=== PATIENT | female | born 1980 | race Caucasian/White ===

== ENCOUNTER 2017-09-09 16:03 | Emergency (ER) | payer MEDICAID ==
[~2017-09-09] VITALS: Ht 175.3 cm; Wt 122.5 kg
[~2017-09-09 16:03] MED LIST: BENADRYL 25MG C25 MG PO; GABAPENTIN 600600 MG PO; GLIPIZIDE ER 5MG5 MG PO; HYDROCODONE BIT1 T44 PO; HYDROXYZINE HYD50 M1 PO; KEFLEX 500MG.500 MG PO; LEVOTHYROXINE0.1 M1 PO; MEDROL 4MG. DOSE4 MG PO; NAPROXEN SODIU500 MG PO; Pepcid20 MG PO; TYLENOL ES500 M1 PO
[2017-09-09] MEDS ORDERED: MOTRIN 600MG.600 MG PO (16:17)
[2017-09-09] MEDS ORDERED: SINGULAIR 10 MG10 MG PO (16:24)
[2017-09-09] MEDS ORDERED: PRENATAL PLUS1 TA1 PO (16:24)
[2017-09-09] MEDS ORDERED: CEPHALEXIN500 MG PO (16:25)
[2017-09-09] MEDS ORDERED: ZYRTEC ALLERGY10 MG PO (16:25)
[2017-09-09] MEDS ORDERED: DOCUSATE SODIU100 M2 PO (16:26)
[2017-09-09] MEDS ORDERED: FLOVENT 11110 MCG/PU IH (16:27)
[2017-09-09 16:29] LABS: LYMPH # 1.9 K/mm3 (0.7-4.5); LYMPH % 18.2 % (10-50.0)
[2017-09-09] MEDS ORDERED: NOVOLIN N100 U/ML SC ×2 (16:29)
[2017-09-09] MEDS ORDERED: INSULIN RE100 UNITS/ SC (16:30)
[2017-09-09] MEDS ORDERED: ACETAMINOPHEN-O1 TAB PO (16:31)
[2017-09-09 16:34] LABS: HEMOGLOBIN 8.5 g/dL (12.2-16.2)
--- NOTE | 2017-09-09 16:40 | Emergency Room Report ---
History of Present Illness Time Seen by MD Castillo Presenting Problem in Triage Pt arrived:Walked Presenting Problem:PT C/O HEADACHE AND SHORTNESS OF BREATH BEGINNING THIS AM. PT ALSO C/O FEET SWELLING SINCE A ON 08/31/17 Onset of symptoms date/time:09/09/17 or onset unknown for: Treatment Prior to Arrival: CONTRACTS OFFICER Provided by: Sepsis Risk Assessment: Temp: 98.6 B/P: 199/98 MAP: 131 Pulse: 94 Resp: 18 Recent fever? N Clinical Suspician of Infection? N Mental Status: 1 - Regular (Normal Baseline) Sepsis Risk:Low Sepsis Risk Have you (or family members/close friends) recently traveled outside the [place]? N If Yes, where/when: Have you had exposure to infectious disease within the past month? N TB? Other? Specify: Patient is a A0 female s/p CS at [facility] on 08/31/17 with history of preeclampsia. She was on Labetalol PO with good blood pressure control at the time of delivery. She states she had a "difficult C -Section" but the baby is doing well at home, and she is . She also has continued to take Labetalol 100 mg PO TID, with the last dose at 1300 today per routine. She has no diplopia or gait change. She has occasional sharp, intermittent epigastric pain. Lochia is scant, and pink tinged. Post operatively she experienced a very itchy, red rash which she and her caretakes thought to be reaction to soap. Overall, it is improving. No other new rashes reported. She has undergone nearly complete thyroidectomy in the past and has occasional palpitations. ALLERGIES Coded Allergies: glyburide (Severe, 09/09/17) Penicillins (Intermediate, I-RASH 09/09/17) SHELLFISH (FOOD) (Intermediate, I-RASH 09/09/17) iodine (Intermediate, I-RASH 09/09/17) sunflower oil (Intermediate, I-RASH 09/09/17) Home Medications Reported Medications IBUPROFEN (Motrin 600MG) 600 MG PO Q6HP PRN PAIN #30 MULTIVIT-MIN W/FE-FA ( Multivitamin Tablet) 1 TAB PO DAILY Montelukast Sodium (Singulair 10MG) 10 MG PO DAILY Cetirizine Hcl (Zyrtec) 10 MG PO DAILY CEPHALEXIN MONOHYDRATE (Cephalexin 500MG Capsule) 500 MG PO Q6H Docusate Sodium 100 MG PO PRN PRN STOOL SOFTENER FLUTICASONE PROP (Flovent 110) 1 PUFF IH PRN PRN RESP Insulin, Isophane Human (Nph) (Novolin N 10ML VIAL) 60 UNITS SC QAM Insulin, Isophane Human (Nph) (Novolin N 10ML VIAL) 40 UNITS SC QPM Insulin Regular (Regular Insulin 10ML Vial) 0 UNITS SC TID OXYCODONE HCL/ACETAMINOPHEN (Oxycodone-Acetaminophen 5-325) 1 TAB PO Q4HP PRN PAIN #30 History Medical History General CAD? No Angina: No LA: No Hypertension? No Hyperlipidemia? No CHF? No DVT? No PE? No COPD? No Asthma? No Anemia? No GERD? No Gastric ulcers? No GI Bleed? No Hernia? No Thyroid Problems? Yes Hypothyroidism? Yes CVA? No Seizures? No Diabetes? Yes Insulin Dependent: Yes Insulin Pump: No Home FSBS? Yes Renal Insuffiency? No End Stage Renal Disease? No UTI? Yes Stones? No GB Disease: Yes Nephritic Syndrome? No Asplenia? No Hepatitis? No Sickle Cell Disease? No Arthritis? No Migraines? No Cataracts? No Glaucoma? No MRSA? No HIV? No TB? No Anxiety? No Depression? No Cancer? No Immunization Hx DT/Tetanus 09/21/2006 Flu 2012-FSN Pneumonia Never Had Surgical Hx Previous Surgery?Y GALLBLADDER 2010 TEETH EXTRACTION TONSILS [employer] Hx LMP 13 Months Or More Family History Family Hx Diabetes Yes CAD Yes Hypertension Yes Hyperlipidemia No Cancer Yes TB No Social History Smoking Hx Smoker: Never Smoker Tobacco: No Alcohol Alcohol: No Review of Systems All Other Systems Reviewed and Negative Cardiovascular denies see HPI Genitourinary see HPI. Psychiatric/Neurological see HPI Physical Exam Vital Signs Vital Signs Date Time Temp Pulse Resp B/P Pulse O2 O2 Flow FiO2 Ox Delivery Rate 09/09 1716 87 16 147/89 96 09/09 1649 95 16 148/79 96 09/09 1608 98.6 94 18 199/98 96 General Appearance normal appearance, WD/WN, no apparent distress Eye Exam - bilateral eye normal exam, bilateral eye PERRL, bilateral eye EOMI Neck normal inspection, non-tender, supple, full range of motion Respiratory Status Yes: trachea midline, chest symmetrical, non tender chest. No: respiratory distress, tender on palpation, use of accessory muscles, pain on inspiration, pain on expiration, productive cough, non productive cough. Lung Sounds bilateral: normal breath sounds, lungs clear. Cardiovascular normal exam, regular rate/rhythm, no peripheral edema, no gallop, no JVD, no murmur, no rub, normal peripheral pulses Gastrointestinal normal bowel sounds, normal exam, non tender, soft, no organomegaly, no pulsatile mass, no guarding, no rebound, mild contact dermatititis, diffusely, no secondary infection noted; CS scar is well healing with no edema or erythema noted, and no drainage or tenderness. Extremities non-tender, normal range of motion, normal inspection, normal capillary refill, no calf tenderness, no pedal edema Strength 5 Upper Ext (L), 5 Upper Ext (R), 5 Lower Ext (L), 5 Lower Ext (R) Neurologic alert, call center operator II-XII nml as tested, normal exam, no motor/sensory deficits, oriented x 3 Glascow Coma Scale Glascow Coma Scale Response Value EYE response: 4 Spontaneously 4 MOTOR response: 6 OBEYS 6 VERBAL response: 5 Oriented & Converses 5 Total 15 Skin intact, normal color (see above for wound check) Medical Decision Making LABS/Meds/Orders Pt receiving controlled substance in ED? No Results/Orders Laboratory Tests 09/09/171624: TSH 3.40, Free T4 Index 8.2, Thyroxine (T4) 11.0, T3 Uptake 30 L 09/09/17 1625: Sodium 141, Potassium 3.8, Chloride 104, Carbon Dioxide 31, BUN 15, Creatinine 0.7, Estimated Creat Clear 209 H, Estimated GFR (MDRD) 93, Glucose 93, Calcium 9.4, Total Bilirubin 0.3, AST 15, ALT 21, Alkaline Phosphatase 103, Lactate Dehydrogenase 191, Total Protein 7.1, Albumin 2.7 L, Globulin 4.4 H, Albumin/ Globulin Ratio 0.6 L, PT 10.1, INR 0.94, APTT 26.1, WBC 10.2, RBC 2.96 L, Hgb 8.5 L, Hct 26.1 L, MCV 88.5, RDW 14.9, Plt Count 421, MPV 7.6, Gran % 72.4, Gran # 7.4, Lymphocytes % 18.2, Monocytes % 5.7, Eosinophils % 3.4, Basophils % 0.4, Lymphocytes # 1.9, Monocytes # 0.6, Eosinophils # 0.3, Basophils # 0.0, PUBS MCHC 32.4, MCH 28.7 Current Medication Orders Sig/Mike Start time Last Medication Dose Route Stop Time Status Admin Magnesium Sulfate 0 .STK-MED ONE 09/09 1749 DC .ROUTE Magnesium Sulfate 4 GM ONCE ONE 09/09 174 AC Sodium Chloride 100 ML IV 09/09 1848 Magnesium Sulfate 2 GM ONCE ONE 09/09 174 AC Sodium Chloride 100 ML IV 09/09 184 Magnesium Sulfate 0 .STK-MED ONE 09/09 174 DC .ROUTE Sodium Chloride 100 ML .STK-MED ONE 09/09 1739 DC IV Sodium Chloride 50 ML .STK-MED ONE 09/09 1739 DC IV Sodium Chloride 100 ML .STK-MED ONE 09/09 1739 DC IV Magnesium Sulfate 0 .STK-MED ONE 09/09 1738 DC .ROUTE Labetalol HCl 20 MG ONCE ONE 09/09 1715 DC 09/09 IV 09/09 1716 1717 Morphine Sulfate 4 MG ONCE ONE 09/09 1715 CAN IV 09/09 1716 Labetalol HCl 0 .STK-MED ONE 09/09 1713 DC IV Magnesium Sulfate 1 GM ONCE ONE 09/09 1630 DC 09/09 Sodium Chloride 50 ML IV 09/09 1700 1633 Sodium Chloride 10 ML PRN PRN 09/09 1630 AC 09/09 IV 09/10 1617 1718 Sodium Chloride 50 ML .STK-MED ONE 09/09 1629 DC IV Magnesium Sulfate 0 .STK-MED ONE 09/09 1628 DC .ROUTE Orders Procedure Date/time Status ELECTROCARDIOGRAM REQUEST 09/09 1640 Active THYROID PANEL 2 (WITH TSH) 09/09 1640 Complete GEN NSG/PT REQ (NOT FOR MEDS!) 09/09 1625 Active IV SALINE LOCK 09/09 1617 Active URINALYSIS/COMPLETE 09/09 1617 Active PARTIAL THROMBOPLASTIN TIME 09/09 1617 Complete PROTHROMBIN TIME 09/09 1617 Complete LDH 09/09 1617 Complete CBC WITH AUTO DIFF 09/09 1617 Complete CHEM 12 PROFILE 09/09 1617 Complete CM/EKG CM/EKG EKG rate, NSR, rhythm, no evid. of ischemic chgs, no ectopy, normal QRS, normal [place], normal EKG (nl QTc; NSR 82) Consult MD Physician Consult 1 Time Called 1651 Reason Gynecological eval/care, Obstetrical eval/care Comments preeclampsia; [facility] paged. Physician Consult 2 Time Called 1725 Reason Transfer to facility Comments Dr. Gustafson reviewed meds already given (Mag and Labetalol) and in addition would like 4 gram Mag IV over thirty minutes followed by a Mag gtts at 2 grams/hour. Progress ED Progress Notes 1 Date 09/09/17 Time 1650 Comment BP 148/79, still receiving Magnesium gtts; headache abating and is almost gone. ED Progress Notes 2 Date 09/09/17 Time 1751 Comment 160/90; mild cephalgia; Mag bolus being initiated currently and OB RN will accompany her on the ambulance and understands that the Mag gtts will be 2 grams /hr after the 4 mg bolus. Departure Departure Time of Disposition 180 Disposition DC/XFER from ER to [facility] Clinical Impression Primary Impression: Preeclampsia in period Condition STABLE ED Critical Care Critical Care Yes Time spent 30-74 min Vital system(s) involved: Circulatory Failure (hypertension: symptomatic) I was present at bedside for Coordinating pt's care, Interpreting EKGs/Strips , During my initial exam, Reviewing lab results, Discussing pt condition, For re -examinations at 1802
--- OUTSIDE RECORDS SUMMARY | 2017-09-09 16:40 | External Medical Summary Rpt | CCD ---
Author Author , EVA VELASQUEZ Address Unknown Phone [email or web address] Purpose Continuity of Care Document - 10-23-2013 through 2016 Problems Code Diagnosis DOS Provider Status O26.892 Other 05-17-2017 specified related conditions, second trimester R73.9 Hyperglycem 05-17-2017 ia, unspecified E11.9 TYPE 2 01-31-2017 DIABETES MELLITUS WITHOUT COMPLICATIO NS O24.311 UNSPECIFIED 01-31-2017 PRE-EXISTIN G DIABETES MELLITUS IN , FIRST TRIMESTER O26.891 OTHER 01-31-2017 SPECIFIED RELATED CONDITIONS, FIRST TRIMESTER O9A.211 INJURY, 01-31-2017 POISONING AND CERTAIN OTHER CONSEQUENCE S OF EXTERNAL CAUSES COMPLICATIN G , FIRST TRIMESTER R03.0 ELEVATED 01-31-2017 BLOOD-PRESS URE READING, WITHOUT DIAGNOSIS OF HYPERTENSIO N R10.2 PELVIC AND 01-31-2017 PERINEAL PAIN Z3A.01 LESS THAN 8 01-31-2017 WEEKS GESTATION OF L50.8 OTHER URTICARIA T78.40XA ALLERGY, UNSPECIFIED , INITIAL ENCOUNTER Results Labs Lab Lab Date Result Refere Interp Status Commen Order Detail nces retati t Range on Creat Ur-mCnc (08-30-2017 23:43) Creat 63 complet Ur-mCnc 017 mg/dL ed 23:43 Gp B Strep XXX Ql Cult (08-16-2017 15:26) Bacteri [id number] complet a XXX 017 7 ed Anaerob 15:26 Strepto e+Aerob coccus e Cult agalact iae (organi sm) SCT JEFFREY STREPTO COCCUS AGALACT IAE (BETA HEMOLYT IC STREPTO COCCUS, GROUP B) L Creat Ur-mCnc (08-14-2017 04:53) Creat 170 complet Ur-mCnc 017 mg/dL ed 04:53 TSH SerPl DL<=0.005 mIU/L-aCnc (06-28-2017 14:15) TSH 2.17 0.4-4.2 complet SerPl 017 uIU/mL ed DL<=0.0 14:15 05 mIU/L-a [facility] TSH SerPl DL<=0.005 mIU/L-aCnc (05-12-2017 12:58) TSH 1.83 0.4-4.2 complet SerPl 017 uIU/mL ed DL<=0.0 12:58 05 mIU/L-a Cnc Creat Ur-mCnc (05-12-2017 12:58) Creat 21 complet Ur-mCnc 017 mg/dL ed 12:58 Hgb A1c MFr Bld (05-06-2017 09:15) Hgb A1c 5.8 % 4.7-6.0 complet MFr 017 ed Bld 09:15 RPR Ser Ql (02-10-2017 10:30) RPR Ser NR complet Ql 017 NONREAC ed 10:30 TIVE L RUBV IgG Ser Ql (02-10-2017 10:30) RUBV POS complet IgG Ser 017 POSITIV ed Ql 10:30 E L HBV surface Ag SerPl Ql EIA (02-10-2017 10:30) HBV NEG complet surface 017 NEGATIV ed Ag 10:30 E L SerPl Ql EIA Bacteria Ur Cult (01-28-2017 13:09) Bacteri [id number] complet a XXX 017 07 ed Anaerob 13:09 Escheri e+Aerob moo e Cult coli (organi sm) SCT ECOL ESCHERI MOO COLI L CC XXX NOTAP complet VC-aCnc 017 NOT ed 13:09 APPLICA BLE L C trach+GC DNA XXX PCR (01-28-2017 13:09) Bacteri Referen complet a XXX 017 ce ed Anaerob 13:09 range: e+Aerob No DNA e Cult for Neisser ia gonorrh oeae detecte d. Bacteri (NOTE) complet a XXX 017 ed Anaerob 13:09 e+Aerob e Cult Bacteri [id number] complet a XXX 017 09 ed Anaerob 13:09 negativ e+Aerob e e Cult (qualif ier value) SCT NGNEG NEGATIV E for Neisser ia gonorrh oeae DNA by nucleic acid amplifi cation. L Chlamydia DNA XXX Ql PCR (01-28-2017 13:09) Bacteri Referen complet a XXX 017 ce ed Anaerob 13:09 Range: e+Aerob No DNA e Cult for Chlamyd ia trachom atis plasmid detecte d. Bacteri (NOTE) complet a XXX 017 ed Anaerob 13:09 e+Aerob e Cult Bacteri [id number] complet a XXX 017 09 ed Anaerob 13:09 negativ e+Aerob e e Cult (qualif ier value) SCT CTNEG NEGATIV E for Chlamyd ia trachom atis plasmid by nucleic acid amplifi cation. L CHLAMYDIA AND GONORRHEA TESTING (10-23-2013 13:00) Chlamyd NEGATIV complet ia 013 E ed trachom 13:00 atis rRNA [Presen ce] in Unspeci fied specime n by Probe & target amplifi cation method Neisser NEGATIV complet ia 013 E ed gonorrh 13:00 oeae rRNA [Presen ce] in Unspeci fied specime n by Probe & target amplifi cation method CHLAMYDIA AND GONORRHEA TESTING (10-23-2013 13:00) COLLECT RN complet OR 013 ed 13:00 ETHNICI WHITE, complet TY 013 NON-HIS ed 13:00 PANIC KIT 2013-12 complet EXPIRAT 013 -28 ed ION 13:00 DATE SYMPTOM NO complet S 013 ed 13:00 REASON REVISIT complet FOR 013 /ANNUAL ed REQUEST 13:00 FAMILY PLANNIN G VISIT SPECIME URINE complet N 013 ed SOURCE 13:00 PREGNAN NO complet T 013 ed 13:00 CHART [id number] complet NUMBER 013 59 ed 13:00 Chlamyd Pending complet ia 013 ed trachom 13:00 atis rRNA [Presen ce] in Unspeci fied specime n by Probe & target amplifi cation method Neisser 12-03-2 Pending complet ia 013 ed gonorrh 13:00 oeae rRNA [Presen ce] in Unspeci fied specime n by Probe & target amplifi cation method
--- OUTSIDE RECORDS SUMMARY | 2017-09-09 16:40 | External Medical Summary Rpt | CCD ---
Author Author , EVA VELASQUEZ Address Unknown Phone [email or web address] Purpose Continuity of Care Document - 10-23-2013 [...] Strep XXX Ql Cult (08-16-2017 15:26) Bacteri [id number] complet a XXX 017 7 ed Anaerob 15:26 Strepto e+Aerob coccus e Cult agalact iae (organi sm) SCT JEFFREY STREPTO COCCUS AGALACT IAE (BETA HEMOLYT IC STREPTO COCCUS, GROUP B) L Creat Ur-mCnc (08-14-2017 04:53) Creat 170 complet Ur-mCnc 017 mg/dL ed 04:53 TSH SerPl DL<=0.005 mIU/L-aCnc (06-28-2017 14:15) TSH 2.17 0.4-4.2 complet SerPl 017 uIU/mL ed DL<=0.0 14:15 05 mIU/L-a [facility] TSH SerPl DL<=0.005 mIU/L-aCnc (05-12-2017 12:58) TSH [...] EIA Bacteria Ur Cult (01-28-2017 13:09) Bacteri [id number] complet a XXX 017 07 ed Anaerob [...] ed Anaerob 13:09 e+Aerob e Cult Bacteri [id number] complet a XXX 017 09 ed Anaerob [...] ed Anaerob 13:09 e+Aerob e Cult Bacteri [id number] complet a XXX 017 09 ed Anaerob [...] NO complet T 013 ed 13:00 CHART [id number] complet NUMBER 013 59 ed 13:00 Chlamyd Pending complet ia 013 ed trachom 13:00 atis rRNA [Presen ce] in Unspeci fied specime n by Probe & target amplifi cation method Neisser 12-03-2 Pending complet ia 013 ed gonorrh 13:00 oeae rRNA [Presen ce] in Unspeci fied specime n by Probe & target amplifi cation method
--- OUTSIDE RECORDS SUMMARY | 2017-09-09 16:41 | External Medical Summary Rpt ---
Author Author EVA Castillo, [employer] Address Unknown Phone Unavailable Results CHLAMYDIA AND GONORRHEA TESTING Observa Value Referen Units Interpr Notes Date tion ce etation Range COLLECT RN No No No No Oct 3 OR informa informa informa informa 2013 tion in tion in tion in tion in 1:00 PM source source source source data data data data ETHNICI WHITE, No No No No Oct 23 TY NON-HIS informa informa informa informa 2013 PANIC tion in tion in tion in tion in 1:00 PM source source source source data data data data KIT 2013-12 No No No No Oct 23 EXPIRAT -28 informa informa informa informa 2013 ION tion in tion in tion in tion in 1:00 PM DATE source source source source data data data data SYMPTOM NO No No No No Oct 23 S informa informa informa informa 2013 tion in tion in tion in tion in 1:00 PM source source source source data data data data REASON REVISIT No No No No Oct 23 FOR /ANNUAL informa informa informa informa 2013 REQUEST FAMILY tion in tion in tion in tion in 1:00 PM source source source source PLANNIN data data data data G VISIT SPECIME URINE No No No No Oct 23 N informa informa informa informa 2013 SOURCE tion in tion in tion in tion in 1:00 PM source source source source data data data data PREGNAN NO No No No No Oct 23 T informa informa informa informa 2013 tion in tion in tion in tion in 1:00 PM source source source source data data data data CHART [id number] No No No No Oct 23 NUMBER 59 informa informa informa informa 2013 tion in tion in tion in tion in 1:00 PM source source source source data data data data Chlamyd NEGATIV No No No NEGATIV Oct 23 ia E informa informa informa E 2013 trachom tion in tion in tion in RESULT= 1:00 PM atis source source source WITHIN rRNA data data data NORMAL [Presen ce] in LIMITSP Unspeci OSITIVE fied specime RESULT= n by Probe & ABNORMA target LEQUIVO PEPE amplifi RESULT= cation method INDETER MINATEU NSATISF ACTORY RESULT= INVALID Neisser NEGATIV No No No NEGATIV Oct 23 ia E informa informa informa E 2013 gonorrh tion in tion in tion in RESULT= 1:00 PM oeae source source source WITHIN rRNA data data data NORMAL [Presen ce] in LIMITSP Unspeci OSITIVE fied specime RESULT= n by Probe & ABNORMA target LEQUIVO PEPE amplifi RESULT= cation method INDETER MINATEU NSATISF ACTORY RESULT= INVALID THE APTIMA COMBO 2 ASSAY IS NOT INTENDE D FOR THE EVALUAT ION OF SUSPECT EDSEXUA L ABUSE OR FOR OTHER MEDICO- LEGAL INDICAT IONS. FOR THOSE PATIENT S FORWHOM A FALSE POSITIV E RESULT MAY HAVE ADVERSE PSYCHO- SOCIAL IMPACT, [facility] RETESTI NG.\.br \This report contain s patient informa tion that must be protect ed in accorda nce with the Health Insuran ce Portabi lity and Account ability Act. CHLAMYDIA AND GONORRHEA TESTING Observa Value Referen Units Interpr Notes Date tion ce etation Range COLLECT RN No No No No Oct 23 OR informa informa informa informa 2013 tion in tion in tion in tion in 1:00 PM source source source source data data data data ETHNICI WHITE, No No No No Oct 23 TY NON-HIS informa informa informa informa 2013 PANIC tion in tion in tion in tion in 1:00 PM source source source source data data data data KIT 2013-12 No No No No Oct 23 EXPIRAT -28 informa informa informa informa 2013 ION tion in tion in tion in tion in 1:00 PM DATE source source source source data data data data SYMPTOM NO No No No No Oct 23 S informa informa informa informa 2013 tion in tion in tion in tion in 1:00 PM source source source source data data data data REASON REVISIT No No No No Dec 3 FOR /ANNUAL informa informa informa informa 2013 REQUEST FAMILY tion in tion in tion in tion in 1:00 PM source source source source PLANNIN data data data data G VISIT SPECIME URINE No No No No Oct 23 N informa informa informa informa 2013 SOURCE tion in tion in tion in tion in 1:00 PM source source source source data data data data PREGNAN NO No No No No Oct 23 T informa informa informa informa 2013 tion in tion in tion in tion in 1:00 PM source source source source data data data data CHART [id number] No No No No Oct 23 NUMBER 59 informa informa informa informa 2013 tion in tion in tion in tion in 1:00 PM source source source source data data data data Chlamyd Pending No No No No Oct 23 ia informa informa informa informa 2013 trachom tion in tion in tion in tion in 1:00 PM atis source source source source rRNA data data data data [Presen ce] in Unspeci fied specime n by Probe & target amplifi cation method Neisser Pending No No No \.br\Oct 23 ia informa informa informa is 2013 gonorrh tion in tion in tion in report 1:00 PM oeae source source source contain rRNA data data data s [Presen patient ce] in Unspeci informa fied tion specime that n by must be Probe & target protect ed in amplifi accorda cation nce method with the Health Insuran ce Portabi lity and Account ability Act.
--- OUTSIDE RECORDS SUMMARY | 2017-09-09 16:41 | External Medical Summary Rpt | CCD ---
Author Author , EVA VELASQUEZ Address Unknown Phone [email or web address] Immunization Name Date Rout CVX Reac Dose Comm Prov Is Faci e tion ent ider Refu lity Give sed n Infl 09-2 150 0.5 Hist [facility] No [facility] uenz 5-20 mL oric 1 1 a 14 al Quad Info Inj rmat ion - Sour ce Unsp ecif ied
--- OUTSIDE RECORDS SUMMARY | 2017-09-09 16:41 | External Medical Summary Rpt | CCD ---
Author Author , EVA VELASQUEZ Address Unknown Phone [email or web address] Immunization Name Date Rout CVX Reac Dose Comm Prov Is Faci e tion ent ider Refu lity Give sed n Infl 09-2 150 0.5 Hist [facility] No [facility] uenz 5-20 mL oric 1 1 a 14 al Quad Info Inj rmat ion - Sour ce Unsp ecif ied
--- OUTSIDE RECORDS SUMMARY | 2017-09-09 16:41 | External Medical Summary Rpt ---
[...] source source data data data data CHART [id number] No No No No Oct 23 NUMBER [...] MAY HAVE ADVERSE PSYCHO- SOCIAL IMPACT, [facility] [place]NOTE 2]RECO MMENDS RETESTI NG.\.br \This report contain s [...] source source data data data data CHART [id number] No No No No Oct 23 NUMBER [...]
--- OUTSIDE RECORDS SUMMARY | 2017-09-09 16:41 | External Medical Summary Rpt | CCD ---
Author Author [employer] Organization [employer] Address Unknown Phone Unavailable Purpose Continuity of Care Document - through 2016
[2017-09-09 17:06] LABS: FREE THYROXIN INDEX 8.2 ug/dl (5.93-13.13)
[2017-09-09 18:07] VITALS: BP 148/84
== END 2017-09-09 18:08 | disposition short-term general hospital (02) ==
LOC: ER 16:03
PROVIDERS: Emergency Medicine
DX: O14.95 Unspecified pre-eclampsia, complicating the puerperium (principal); O99.285 Endocrine, nutritional and metabolic diseases complicating the puerperium; E89.0 Postprocedural hypothyroidism; E11.9 Type 2 diabetes mellitus without complications; O24.13 Pre-existing type 2 diabetes mellitus, in the puerperium; Z79.4 Long term (current) use of insulin; Z79.899 Other long term (current) drug therapy